=== PATIENT | male | born 1975 | race Caucasian/White ===

== ENCOUNTER 2016-12-17 00:05 | Emergency (ER) | payer SELFPAY ==
[~2016-12-17] VITALS: Ht 175.3 cm; Wt 83.2 kg
[2016-12-17 00:11] VITALS: TEMP 97.6
[2016-12-17 00:22] LABS: BASO % 0.8 % (0.0-2.0); EOS % 0.8 % (0-4.0); GRAN # 3.5 (1.4-6.5); GRAN % 67.8 % (42.2-75.2); HEMATOCRIT 41.4 % (42.0-52.0); HEMOGLOBIN 13.8 g/dl (13.5-18.0); LYMPH # 0.9 (1.2-3.4); LYMPH % 17.9 % (20.0-51.0); MEAN CELL VOLUME 81 fl (80.0-100.0); MEAN CORPUSCULAR HEMOGLOBIN 27 pg (27.0-31.0); MEAN CORPUSCULAR HGB CONC 33 g/dl (33.0-37.0); MEAN PLATELET VOLUME 9.7 fl (7.4-10.4); MONO # 0.6 (0.1-0.6); MONO % 11.9 % (1.7-9.3); PLATELET COUNT 295 K/mm3 (130-400); RED BLOOD COUNT 5.14 M/mm3 (4.20-5.60); REDCELL DISTRIBUTION WIDTH-CV 14.6 % (11.5-14.5); WHITE BLOOD COUNT 5.2 K/mm3 (4.8-10.8)
[2016-12-17 00:24] LABS: INR 1.2 (0.8-3.0); PROTHROMBIN TIME 12.8 SECONDS (9.7-12.8)
[2016-12-17] MEDS ORDERED: XARELTO15 MG PO (00:27)
[2016-12-17] MEDS ORDERED: NORCO 325 MG-51 TAB PO (00:27)
[2016-12-17 00:30] LABS: ALANINE AMINOTRANSFERASE 22 U/L (21-72); ALBUMIN 4.6 gm/dL (3.5-5.0); ALKALINE PHOSPHATASE 67 U/L (50-136); ANION GAP 15 mmol/L (7-16); BILIRUBIN,TOTAL 0.8 mg/dL (0.0-1.0); BLOOD UREA NITROGEN 12 mg/dL (9-20); CALCIUM 9.5 mg/dL (8.4-10.2); CARBON DIOXIDE 21 mmol/L (22-30); CHLORIDE 106 mmol/L (98-107); CREATINE KINASE 58 U/L (55-170); CREATININE, serum 0.81 mg/dL (0.66-1.25); GLUCOSE 101 mg/dL (74-106); LIPASE 40 U/L (23-300); POTASSIUM 3.8 mmol/L (3.4-5.0); SODIUM 142 mmol/L (137-145); TOTAL PROTEIN 8.1 gm/dL (6.4-8.2)
[2016-12-17 00:41] LABS: B-TYPE NATRIURETIC PEPTIDE 566 pg/mL (0-125)
[2016-12-17 00:42] LABS: TROPONIN-I < 0.012 ng/mL (0.000-0.034)
[2016-12-17] MEDS ORDERED: TYLENOL 500MG500 MG PO (00:58)
[2016-12-17] MEDS ORDERED: NORVASC2.5 MG PO (00:59)
[2016-12-17] MEDS ORDERED: PLAVIX 75MG TAB75 MG PO (00:59)
[2016-12-17] MEDS ORDERED: ASPIRIN 81M81 MG/TA2 PO (00:59)
[2016-12-17] MEDS ORDERED: CALCIUM 600/VIT1 CA1 PO (00:59)
[2016-12-17] MEDS ORDERED: LIPITOR 80MG80 MG PO (00:59)
[2016-12-17] MEDS ORDERED: CYMBALTA 60MG60 MG PO (01:00)
[2016-12-17] MEDS ORDERED: NEURONTIN400 MG/CAP PO (01:00)
[2016-12-17] MEDS ORDERED: COLACE 100100 MG/CAP PO (01:00)
[2016-12-17] MEDS ORDERED: PRINIVIL5 MG PO (01:01)
[2016-12-17] MEDS ORDERED: CORLANOR5 MG PO (01:01)
[2016-12-17] MEDS ORDERED: ISORDIL 10MG10 MG PO (01:01)
[2016-12-17] MEDS ORDERED: GLUCOPHAGE500 MG/TAB PO (01:02)
[2016-12-17] MEDS ORDERED: ANTIVERT 12.512.5 MG PO (01:02)
[2016-12-17] MEDS ORDERED: MELATONIN5 M1 SL (01:02)
[2016-12-17] MEDS ORDERED: ATIVAN 1MG T1 MG/TAB PO (01:02)
[2016-12-17] MEDS ORDERED: LOPRESSOR 550 MG/TAB PO (01:03)
[2016-12-17] MEDS ORDERED: NITRO-DUR0.4 MG/PAT PO (01:04)
[2016-12-17] MEDS ORDERED: PROTONIX20 MG PO (01:04)
[2016-12-17] MEDS ORDERED: RANEXA1000 MG PO (01:05)
[2016-12-17] MEDS ORDERED: FLOMAX 0.40.4 MG/CAP PO (01:05)
[2016-12-17] MEDS ORDERED: AMBIEN 5MG TABLE5 MG PO (01:06)
[2016-12-17] MEDS ORDERED: ULTRAM 50MG TAB50 MG PO (01:06)
[2016-12-17 01:15] VITALS: BP 137/94; PULSE 87
== END 2016-12-17 01:17 | disposition home or self-care (01) ==
LOC: COL.ER 00:05
PROVIDERS: Emergency Medicine
DX: R07.89 Other chest pain (principal); I10 Essential (primary) hypertension; E78.5 Hyperlipidemia, unspecified; I25.2 Old myocardial infarction; I82.409 Acute embolism and thrombosis of unspecified deep veins of unspecified lower extremity; Z79.82 Long term (current) use of aspirin; Z79.02 Long term (current) use of antithrombotics/antiplatelets; Z87.39 Personal history of other diseases of the musculoskeletal system and connective tissue; Z86.73 Personal history of transient ischemic attack (TIA), and cerebral infarction without residual deficits; Z95.1 Presence of aortocoronary bypass graft; Z95.5 Presence of coronary angioplasty implant and graft; Z95.9 Presence of cardiac and vascular implant and graft, unspecified

== ENCOUNTER 2016-12-18 11:49 | Inpatient (IN) | payer SELFPAY ==
[~2016-12-18] VITALS: Ht 182.9 cm; Wt 78.1 kg
[~2016-12-18 11:49] MED LIST: AMBIEN 5MG TABLE5 MG PO; ANTIVERT 12.512.5 MG PO; ASPIRIN 81M81 MG/TA2 PO; ATIVAN 1MG T1 MG/TAB PO; CALCIUM 600/VIT1 CA1 PO; COLACE 100100 MG/CAP PO; CORLANOR5 MG PO; CYMBALTA 60MG60 MG PO; FLOMAX 0.40.4 MG/CAP PO; GLUCOPHAGE500 MG/TAB PO; ISORDIL 10MG10 MG PO; LIPITOR 80MG80 MG PO; LOPRESSOR 550 MG/TAB PO; MELATONIN5 M1 SL; NEURONTIN400 MG/CAP PO; NITRO-DUR0.4 MG/PAT PO; NORCO 325 MG-51 TAB PO; NORVASC2.5 MG PO; PLAVIX 75MG TAB75 MG PO; PRINIVIL5 MG PO; PROTONIX20 MG PO; RANEXA1000 MG PO; TYLENOL 500MG500 MG PO; ULTRAM 50MG TAB50 MG PO; XARELTO15 MG PO
[2016-12-18 12:20] LABS: BASO % 0.5 % (0.0-2.0); EOS % 0.3 % (0-4.0); GRAN % 76.5 % (42.2-75.2); HEMOGLOBIN 15.7 g/dl (13.5-18.0); LYMPH # 0.8 (1.2-3.4); LYMPH % 11.9 % (20.0-51.0); MEAN CELL VOLUME 82 fl (80.0-100.0); MEAN CORPUSCULAR HEMOGLOBIN 27 pg (27.0-31.0); MEAN CORPUSCULAR HGB CONC 33 g/dl (33.0-37.0); MEAN PLATELET VOLUME 10.8 fl (7.4-10.4); MONO # 0.7 (0.1-0.6); MONO % 10.2 % (1.7-9.3); PLATELET COUNT 311 K/mm3 (130-400); RED BLOOD COUNT 5.73 M/mm3 (4.20-5.60); REDCELL DISTRIBUTION WIDTH-CV 14.8 % (11.5-14.5); WHITE BLOOD COUNT 6.6 K/mm3 (4.8-10.8)
[2016-12-18 12:26] LABS: INR 1.1 (0.8-3.0); PROTHROMBIN TIME 11.9 SECONDS (9.7-12.8)
[2016-12-18 12:29] LABS: PARTIAL THROMBOPLASTIN TIME 23.1 SECONDS (26.0-37.0)
[2016-12-18 13:08] LABS: ADJUSTED CALCIUM 8.7 mg/dL (8.4-10.2); ALANINE AMINOTRANSFERASE 25 U/L (21-72); ALBUMIN 4.8 gm/dL (3.5-5.0); ALKALINE PHOSPHATASE 67 U/L (50-136); ANION GAP 21 mmol/L (7-16); BLOOD UREA NITROGEN 17 mg/dL (9-20); CALCIUM 9.3 mg/dL (8.4-10.2); CARBON DIOXIDE 18 mmol/L (22-30); CHLORIDE 104 mmol/L (98-107); CREATININE, serum 1.01 mg/dL (0.66-1.25); GLUCOSE 95 mg/dL (74-106); POTASSIUM 3.7 mmol/L (3.4-5.0); SODIUM 143 mmol/L (137-145)
[2016-12-18 13:12] LABS: PH 5 (5-8); SQUAMOUS EPITHELIAL 0-2 /hpf; URINE APPEARANCE Cloudy; URINE BACTERIA None Seen /hpf; URINE BILIRUBIN Negative (NEGATIVE); URINE BLOOD 1+ (NEGATIVE); URINE COLOR Amber; URINE GLUCOSE Negative (NEGATIVE); URINE KETONE 2+ (NEGATIVE); URINE RBC None Seen /hpf; URINE UROBILINOGEN Negative (NEGATIVE); URINE WBC None Seen /hpf
[2016-12-18 13:15] LABS: AMPHETAMINE URINE NEGATIVE; BARBITURATES URINE NEGATIVE; BENZODIAZEPINES URINE POSITIVE; BUPRENORPHINE URINE NEGATIVE; METHADONE URINE NEGATIVE; OPIATES URINE POSITIVE; OXYCODONE URINE POSITIVE; PHENCYCLIDINE URINE NEGATIVE; PROPOXYPHENE URINE NEGATIVE; THC CANNABINOIDS URINE NEGATIVE
[2016-12-18 13:23] LABS: LACTIC ACID 5.9 mmol/L (0.4-2.0)
[2016-12-18 13:24] LABS: PROLACTIN 15.3 ng/mL (3.7-17.9); TROPONIN-I < 0.012 ng/mL (0.000-0.034)
[2016-12-18 17:07] LABS: MAGNESIUM 2.1 mg/dL (1.6-2.3); PHOSPHOROUS 3.2 mg/dL (2.5-4.5)
[2016-12-18 18:47] VITALS: BP 159/96; PULSE 74; TEMP 97.6
[2016-12-19] VITALS (769 sets, daily range): BP systolic 111–139; BP diastolic 63–747; PULSE 70–96; TEMP 96.7–98; O2SAT 82–100
[2016-12-19 05:07] LABS: BASO % 0.9 % (0.0-2.0); EOS % 0.7 % (0-4.0); GRAN # 3.1 (1.4-6.5); GRAN % 72.5 % (42.2-75.2); LYMPH # 0.6 (1.2-3.4); LYMPH % 13.8 % (20.0-51.0); MEAN CELL VOLUME 83 fl (80.0-100.0); MEAN CORPUSCULAR HEMOGLOBIN 27 pg (27.0-31.0); MEAN CORPUSCULAR HGB CONC 33 g/dl (33.0-37.0); MEAN PLATELET VOLUME 9.6 fl (7.4-10.4); MONO # 0.5 (0.1-0.6); MONO % 11.4 % (1.7-9.3); PLATELET COUNT 236 K/mm3 (130-400); RED BLOOD COUNT 4.59 M/mm3 (4.20-5.60); REDCELL DISTRIBUTION WIDTH-CV 14.6 % (11.5-14.5); WHITE BLOOD COUNT 4.3 K/mm3 (4.8-10.8)
[2016-12-19 05:10] LABS: HEMOGLOBIN 12.5 g/dl (13.5-18.0)
[2016-12-19 05:22] LABS: ADJUSTED CALCIUM 8.5 mg/dL (8.4-10.2); ALANINE AMINOTRANSFERASE 30 U/L (21-72); ALBUMIN 3.9 gm/dL (3.5-5.0); ALKALINE PHOSPHATASE 57 U/L (50-136); ANION GAP 13 mmol/L (7-16); BLOOD UREA NITROGEN 12 mg/dL (9-20); C-REACTIVE PROTEIN < 0.5 mg/dL (0.0-0.9); CALCIUM 8.4 mg/dL (8.4-10.2); CARBON DIOXIDE 19 mmol/L (22-30); CHLORIDE 107 mmol/L (98-107); GLUCOSE 76 mg/dL (74-106); POTASSIUM 3.3 mmol/L (3.4-5.0); SODIUM 139 mmol/L (137-145); TOTAL PROTEIN 6.8 gm/dL (6.4-8.2)
[2016-12-19 05:31] LABS: TROPONIN-I < 0.012 ng/mL (0.000-0.034)
[2016-12-19 05:32] LABS: ERYTHROCYTE SEDIMENTATION RATE 12 mm/hr (0-15)
[2016-12-20] VITALS (1271 sets, daily range): BP systolic 95–132; BP diastolic 73–96; PULSE 57–69; TEMP 97–98; O2SAT 80–100
[2016-12-20 06:02] LABS: BASO % 0.7 % (0.0-2.0); EOS % 0.7 % (0-4.0); GRAN # 2.5 (1.4-6.5); GRAN % 61.3 % (42.2-75.2); HEMATOCRIT 37.8 % (42.0-52.0); HEMOGLOBIN 12.5 g/dl (13.5-18.0); LYMPH # 0.9 (1.2-3.4); LYMPH % 22.3 % (20.0-51.0); MEAN CELL VOLUME 84 fl (80.0-100.0); MEAN CORPUSCULAR HEMOGLOBIN 28 pg (27.0-31.0); MEAN CORPUSCULAR HGB CONC 33 g/dl (33.0-37.0); MEAN PLATELET VOLUME 9.9 fl (7.4-10.4); MONO # 0.6 (0.1-0.6); MONO % 14.5 % (1.7-9.3); PLATELET COUNT 267 K/mm3 (130-400); REDCELL DISTRIBUTION WIDTH-CV 14.7 % (11.5-14.5); WHITE BLOOD COUNT 4.1 K/mm3 (4.8-10.8)
[2016-12-20 06:11] LABS: CALCIUM 8.2 mg/dL (8.4-10.2); CREATININE, serum 0.84 mg/dL (0.66-1.25); POTASSIUM 3.6 mmol/L (3.4-5.0)
[2016-12-20 06:28] LABS: PROLACTIN 25.4 ng/mL (3.7-17.9)
[2016-12-21] VITALS (1142 sets, daily range): BP systolic 117–156; BP diastolic 63–108; PULSE 55–85; TEMP 97.5–98.4; O2SAT 39–100
[2016-12-21 06:23] LABS: HEMATOCRIT 37.1 % (42.0-52.0); HEMOGLOBIN 12.3 g/dl (13.5-18.0); MEAN CELL VOLUME 83 fl (80.0-100.0); MEAN CORPUSCULAR HEMOGLOBIN 28 pg (27.0-31.0); MEAN CORPUSCULAR HGB CONC 33 g/dl (33.0-37.0); MEAN PLATELET VOLUME 9.8 fl (7.4-10.4); PLATELET COUNT 239 K/mm3 (130-400); RED BLOOD COUNT 4.47 M/mm3 (4.20-5.60); REDCELL DISTRIBUTION WIDTH-CV 14.6 % (11.5-14.5); WHITE BLOOD COUNT 3.8 K/mm3 (4.8-10.8)
[2016-12-21 06:25] LABS: ADD PATHOLOGY DIFF REVIEW NO
[2016-12-21 06:40] LABS: CALCIUM 8.2 mg/dL (8.4-10.2); CREATININE, serum 0.79 mg/dL (0.66-1.25); POTASSIUM 3.4 mmol/L (3.4-5.0)
[2016-12-21 07:55] LABS: BAND 15 % (0-10); BASOPHIL 2 % (0-2); EOSINOPHIL 1 % (0-4); METAMYELOCYTE 4 % (0-0); MYELOCYTE 2 % (0-0); NEUTROPHILS 57 % (42.0-75.2); PLATELET ESTIMATE NORMAL (NORMAL); TOTAL CELLS COUNTED 100
[2016-12-21 07:56] LABS: OVALOCYTES 1+
[2016-12-21 09:02] LABS: INR 1.3 (0.8-3.0); PROTHROMBIN TIME 14.8 SECONDS (9.7-12.8)
[2016-12-21 09:04] LABS: PARTIAL THROMBOPLASTIN TIME 35.9 SECONDS (26.0-37.0)
[2016-12-21] MEDS ORDERED: KEPPRA1000 MG PO (17:44)
[2016-12-21] MEDS ORDERED: XARELTO20 MG PO (17:50)
[2016-12-22 00:14] VITALS: BP 136/89; PULSE 63; TEMP 97.8
[2016-12-22 04:35] VITALS: BP 134/91; PULSE 69; TEMP 97.7
[2016-12-22 07:48] VITALS: BP 128/72; PULSE 79; TEMP 97.9
[2016-12-22 08:00] VITALS: BP 128/72; PULSE 79; TEMP 97.9
== END 2016-12-22 12:55 | disposition home or self-care (01) | DRG 101 ==
LOC: COL.ER 11:49 → MEDICAL 14:15 → ICU 16:54 → MEDICAL 12-19 04:39 → ICU 12-21 23:08 → MEDICAL 12-21 23:08
PROVIDERS: Emergency Medicine; Family Medicine; Internal Medicine; Internal Medicine Interventional Cardiology
PROC: B2111ZZ Fluoroscopy of Multiple Coronary Arteries using Low Osmolar Contrast (ICD-10-PCS; principal; 2016-12-21)
PROC: B2151ZZ Fluoroscopy of Left Heart using Low Osmolar Contrast (ICD-10-PCS; 2016-12-21)
PROC: 4A023N7 Measurement of Cardiac Sampling and Pressure, Left Heart, Percutaneous Approach (ICD-10-PCS; 2016-12-21)
DX: G40.409 Other generalized epilepsy and epileptic syndromes, not intractable, without status epilepticus (principal); I69.951 Hemiplegia and hemiparesis following unspecified cerebrovascular disease affecting right dominant side; E87.2 Acidosis; I10 Essential (primary) hypertension; E11.9 Type 2 diabetes mellitus without complications; K21.9 Gastro-esophageal reflux disease without esophagitis; I25.2 Old myocardial infarction; E78.5 Hyperlipidemia, unspecified; R19.5 Other fecal abnormalities; Z95.1 Presence of aortocoronary bypass graft; Z86.711 Personal history of pulmonary embolism; Z98.1 Arthrodesis status; I25.10 Atherosclerotic heart disease of native coronary artery without angina pectoris
CPT/HCPCS: 90791-AI; 99223-AI; 99232-AI; 99233-AI; C1760; C1769; C1894; J1953; J2060; J2250; J2270; J2310; J2405; J3010; J7030; Q9967